=== PATIENT | male | born 1980 | race Caucasian/White ===

== ENCOUNTER → 2017-04-03 | Day surgery (SDC) | payer BC ==
[2017-04-01 12:48] LABS: BASOPHILS # (AUTO) 0.1 (0.0-0.1); BASOPHILS % 0.8 % (0.0-1.0); EOSINOPHILS # (AUTO) 0.6 (0.0-0.4); EOSINOPHILS % 7.1 % (0.0-6.0); HEMOGLOBIN 15.2 g/dL (14.0-18.0); LYMPHOCYTES # (AUTO) 2.5 (1.0-3.2); LYMPHOCYTES % 29.4 % (18.0-39.1); MEAN CORPUSCULAR HEMOGLOBIN 29.1 pg (28-32); MEAN CORPUSCULAR HGB CONC 34.5 g/dL (31-35); MEAN CORPUSCULAR VOLUME 84.1 fL (81-99); MONOCYTES # (AUTO) 0.8 (0.2-0.8); MONOCYTES % 9.8 % (4.4-11.3); NEUTROPHILS # (AUTO) 4.4 (2.1-6.9); NEUTROPHILS % 52.1 % (38.7-80.0); PLATELET COUNT 326 x10e3/uL (140-360); RED BLOOD COUNT 5.23 x10e6/uL (4.3-5.7); RED CELL DISTRIBUTION WIDTH 12.2 % (11.7-14.4)
[2017-04-01 14:05] LABS: ANION GAP 12.6 mmol/L (8-16); BLOOD UREA NITROGEN 13 mg/dL (7-26); BUN/CREATININE RATIO 14 (6-25); CALCIUM 9.7 mg/dL (8.4-10.2); CARBON DIOXIDE 29 mmol/L (22-29); CHLORIDE 106 mmol/L (98-107); CREATININE, SERUM 0.91 mg/dL (0.72-1.25); EST GLOMERULAR FILTRATION RATE > 60 ML/MIN (60-); GLUCOSE 91 mg/dL (74-118); POTASSIUM 4.6 mmol/L (3.5-5.1); SODIUM 143 mmol/L (136-145)
[~2017-04-03] MED LIST: BUPIVACAINE 0.25%/EPI 30ML SDV INJ ONE; DEXAMETHASONE SOD PHOS INJ 4 MG/ML VIAL ONE; FENTANYL CITRATE/PF 100MCG/2 ML INJ ONE; LIDOCAINE HCL 1% LOCAL INJ 20 ML VIAL ONE; LIDOCAINE HCL 2% LOCAL INJ 5 ML SDV VIAL INJ ONE; MEPERIDINE HCL INJ 50 MG/ML INJ ONE; MIDAZOLAM HCL 2 MG/2 ML VIAL ONE; OMEPRAZOLE40 MG PO; ONDANSETRON HCL INJ 2 MG/ML VIAL ONE; PROPOFOL IV EMULSION 10 MG/ML 20 ML VIAL ONE; ROCURONIUM BROMIDE 10 MG/ML 5ML VIAL ONE; SEVOFLURANE INHAL SOLN 250 ML PEN BTL ONE
--- NOTE | 2017-04-03 14:43 | Operative Report ---
DATE OF PROCEDURE: April 03, 2017 PREOPERATIVE DIAGNOSIS: Right inguinal hernia. POSTOPERATIVE DIAGNOSIS: Right inguinal hernia. OPERATION PERFORMED: Repair of right inguinal hernia with large Prolene Hernia System. MANUFACTURING PLANNER: CARRI Cornejo. ANESTHESIA: General. COMPLICATIONS: None. ESTIMATED BLOOD LOSS: Minimal. DESCRIPTION OF PROCEDURE: With the patient lying in bed in the supine position, under good general anesthesia, the abdomen was prepped with Betadine solution and draped in the usual manner. Right inguinal incision was made. It was carried down through the subcutaneous tissue down to the external oblique aponeurosis. External oblique was opened along the length of its fibers, and the external inguinal ring was opened. The cord was then mobilized and retracted. Exploration of the cord revealed the presence of a large indirect hernia sac, which was from all of the cord structures, and a high ligation was achieved with a pursestring suture of 2-0 silk and a 2-0 silk tie. The excess was resected. The preperitoneal space was then entered, and a pocket was created without any difficulty. A large Prolene Hernia System was placed in the preperitoneal space, and the underlay patch was deployed without any problems. The overlay patch was then placed over the floor and split inferolaterally to allow for passage of the cord. The mesh was then sutured to the conjoined tendon and inguinal ligament using interrupted sutures of 2-0 Vicryl. All layers were infiltrated on the way out with a solution of 1/4 percent Marcaine and 1% lidocaine mixed in equal parts. Perfect hemostasis was ascertained. External oblique aponeurosis was closed with a running suture 2-0 Vicryl. The subcutaneous tissue was approximated with 3-0 plain, and the skin was closed with clips. A dressing was applied. The sponge, lap and needle count was correct. The patient tolerated the procedure well and returned to the recovery room in stable condition. Job#: [id number]
== END | disposition home or self-care (01) ==
LOC: OR 07:06
PROVIDERS: ATTEND Surgery
DX: K40.90 Unilateral inguinal hernia, without obstruction or gangrene, not specified as recurrent (principal); K21.9 Gastro-esophageal reflux disease without esophagitis; J30.2 Other seasonal allergic rhinitis; Z01.812 Encounter for preprocedural laboratory examination
CPT/HCPCS: 36415; 49505; 80048; 85025; C1781; J1100; J2001 ×2; J2175; J2250; J2405

== ENCOUNTER 2017-08-27 16:26 | Inpatient (IN) | payer BC ==
[~2017-08-27] VITALS: Ht 177.8 cm; Wt 67.2 kg
[~2017-08-27 16:26] MED LIST changes: -BUPIVACAINE 0.25%/EPI 30ML SDV INJ ONE; -DEXAMETHASONE SOD PHOS INJ 4 MG/ML VIAL ONE; -FENTANYL CITRATE/PF 100MCG/2 ML INJ ONE; -LIDOCAINE HCL 1% LOCAL INJ 20 ML VIAL ONE; -LIDOCAINE HCL 2% LOCAL INJ 5 ML SDV VIAL INJ ONE; -MEPERIDINE HCL INJ 50 MG/ML INJ ONE; -MIDAZOLAM HCL 2 MG/2 ML VIAL ONE; -ONDANSETRON HCL INJ 2 MG/ML VIAL ONE; -PROPOFOL IV EMULSION 10 MG/ML 20 ML VIAL ONE; -ROCURONIUM BROMIDE 10 MG/ML 5ML VIAL ONE; -SEVOFLURANE INHAL SOLN 250 ML PEN BTL ONE
[2017-08-27] MEDS ORDERED: SODIUM CHLORIDE 0.9% 1000ML 1,000 ML IV STA ×2 (16:57→20:51)
[2017-08-27] MEDS ORDERED: PROMETHAZINE HCL (IM) 25 MG/ML VIAL IV STA (16:57)
[2017-08-27] MEDS ORDERED: MORPHINE SULFATE 4 MG/ML SYR IV STA (17:03)
[2017-08-27] MEDS ORDERED: DIATRIZOATE MEGL/DIATRIZOA SOD 30 ML BTL PO ONE (17:17)
[2017-08-27 17:46] LABS: BASOPHILS # (AUTO) 0.1 (0.0-0.1); BASOPHILS % 0.4 % (0.0-1.0); HEMATOCRIT 47.3 % (38.2-49.6); HEMOGLOBIN 16.5 g/dL (14.0-18.0); LYMPHOCYTES # (AUTO) 0.4 (1.0-3.2); LYMPHOCYTES % 1.9 % (18.0-39.1); MEAN CORPUSCULAR HEMOGLOBIN 29.1 pg (28-32); MEAN CORPUSCULAR HGB CONC 34.9 g/dL (31-35); MEAN CORPUSCULAR VOLUME 83.4 fL (81-99); MONOCYTES % 4.3 % (4.4-11.3); NEUTROPHILS # (AUTO) 20.8 (2.1-6.9); NEUTROPHILS % 91.4 % (38.7-80.0); PLATELET COUNT 271 x10e3/uL (140-360); RED BLOOD COUNT 5.67 x10e6/uL (4.3-5.7); RED CELL DISTRIBUTION WIDTH 12.7 % (11.7-14.4)
[2017-08-27] MEDS ORDERED: PIPER-TAZ 3.375 GM 50 ML IV ONE (18:00)
[2017-08-27 18:06] LABS: ALANINE AMINOTRANSFERASE 17 IU/L (0-55); ALBUMIN 3.9 g/dL (3.5-5.0); ALBUMIN/GLOBULIN RATIO 0.7 (0.8-2.0); ALKALINE PHOSPHATASE 91 IU/L (40-150); AMYLASE 48 U/L (25-125); BLOOD UREA NITROGEN 27 mg/dL (7-26); BUN/CREATININE RATIO 18 (6-25); CALCIUM 11.5 mg/dL (8.4-10.2); CARBON DIOXIDE 29 mmol/L (22-29); CHLORIDE 93 mmol/L (98-107); CREATINE KINASE 49 IU/L (30-200); CREATININE, SERUM 1.46 mg/dL (0.72-1.25); EST GLOMERULAR FILTRATION RATE 54 ML/MIN (60-); GLUCOSE 135 mg/dL (74-118); LIPASE 15 U/L (8-78); SODIUM 136 mmol/L (136-145)
[2017-08-27 18:29] LABS: THYROID STIMULATING HORMONE 0.957 uIU/mL (0.350-4.940)
[2017-08-27] MEDS ORDERED: MORPHINE SULFATE 2 MG/ML SYR ONE (18:33)
[2017-08-27 18:49] LABS: LYMPHOCYTES % (MANUAL) 2 % (19-48); MONOCYTES % (MANUAL) 2 % (3.4-9.0); NEUTROPHILS % (MANUAL) 96 % (40-74); PLATELET ESTIMATE ADEQUATE; PLATELET MORPHOLOGY COMMENT NORMAL; RBC MORPHOLOGY COMMENT NORMAL
[2017-08-27] MEDS ORDERED: METOCLOPRAMIDE HCL 10 MG/2ML VIAL IV ONE (19:00)
--- NOTE | 2017-08-27 20:47 | Diagnostic Imaging Report ---
EXAM: CT Abdomen and Pelvis WITH contrast INDICATION: \S\r/o appy \[id number] \S\1932 COMPARISON: None. TECHNIQUE: Abdomen and pelvis were scanned utilizing a multidetector helical scanner from the lung base to the pubic symphysis after administration of IV contrast. Coronal and sagittal reformations were obtained. Routine protocol was performed. Scan was performed when during portal venous phase. IV CONTRAST: 100 mL of Isovue-370 ORAL CONTRAST: Gastrografin RADIATION DOSE: Total DLP: 212.7 mGy*cm Estimated effective dose: (DLP x 0.015 x size factor) mSv COMPLICATIONS: None FINDINGS: LINES and TUBES: None. LOWER THORAX: Unremarkable HEPATOBILIARY: No focal hepatic lesions. No biliary ductal dilation. GALLBLADDER: No radio-opaque stones or sludge. No wall thickening. SPLEEN: No splenomegaly. PANCREAS: No focal masses or ductal dilatation. ADRENALS: No adrenal nodules KIDNEYS/URETERS: Kidneys enhance symmetrically. No hydronephrosis. Subcentimeter right renal cyst. No stones. GI TRACT: Multiple dilated loops of small and large bowel. No bowel obstruction. Diffuse dilatation of the appendix measuring up to 1.4 cm and containing multiple appendicoliths measuring up to 1 cm. Extensive fat stranding and a small amount of free fluid surrounding the appendix. Extensive inflammatory changes in the cecum. Few foci of free air adjacent to the appendix, better seen on series 2, images 69 and 70. PELVIC ORGANS/BLADDER: Unremarkable. LYMPH NODES: No lymphadenopathy. VESSELS: Unremarkable. PERITONEUM / RETROPERITONEUM: No free air or fluid. BONES: Unremarkable. SOFT TISSUES: Unremarkable. IMPRESSION: Findings consistent with perforated appendicitis with only a few air foci surrounding the appendix. Extensive inflammatory changes involving the cecum as well. Reactive ileus. These findings were communicated to Dr. Sarabia on 08/27/2017 at 8:40 PM. Signed by: Dr. Peg Hastings M.D. on 08/27/2017 8:44 PM
[2017-08-27] MEDS ORDERED: HYDROMORPHONE 1MG/1ML INJ IV PRN (21:00)
[2017-08-27] MEDS ORDERED: MORPHINE SULFATE 2 MG/ML SYR IV PRN (21:00)
[2017-08-27] MEDS ORDERED: ONDANSETRON HCL 4 MG ORAL DISINTEGRATING TAB PO PRN (21:00)
[2017-08-27] MEDS ORDERED: IOPAMIDOL 370 MG/ML 200 ML INFUS..BTL INJ ONE (21:22)
[2017-08-27] MEDS ORDERED: SODIUM CHLORIDE 0.9% 50ML 50 ML ONE (21:22)
[2017-08-27] MEDS: SODIUM CHLORIDE 0.9% 1000ML 1,000 ML IV SCH (21:45)
[2017-08-27] MEDS: HYDROMORPHONE 2MG/ML INJ IV PRN (21:50)
[2017-08-27] MEDS ORDERED: PIPER-TAZ 3.375 GM / NS 50ML IV SCH ×2 (22:00)
--- OUTSIDE RECORDS SUMMARY | 2017-08-27 22:09 | XMS REPORT ---
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 Allergies, Adverse Reactions, Alerts This patient has no known allergies or adverse reactions. Medications This patient has no known medications. 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 TECHNIQUE: Abdomen and pelvis were scanned utilizing a multidetector helical scanner from the lung base to the pubic symphysis after administration of IV contrast. Coronal and sagittal reformations were obtained. Routine protocol was performed. Scan was performed when during portal venous phase. IV CONTRAST: 100 mL of Isovue-370 ORAL CONTRAST: Gastrografin RADIATION DOSE: Total DLP: 212.7 mGy*cm Estimated effective dose: (DLP x 0.015 x size factor) mSv COMPLICATIONS: None FINDINGS: LINES and TUBES: None. LOWER THORAX: Unremarkable HEPATOBILIARY: No focal hepatic lesions. No biliary ductal dilation. GALLBLADDER: No radio-opaque stones or sludge. No wall thickening. SPLEEN: No splenomegaly. PANCREAS: No focal masses or ductal dilatation. ADRENALS: No adrenal nodules KIDNEYS/URETERS : Kidneys enhance symmetrically. No hydronephrosis. Subcentimeter right renal cyst. No stones. GI TRACT: Multiple dilated loops of small and large bowel. No bowel obstruction. Diffuse dilatation of the appendix measuring up to 1.4 cm and containing multiple appendicoliths measuring up to 1 cm. Extensive fat stranding and a small amount of free fluid surrounding the appendix. Extensive inflammatory changes in the cecum. Few foci of free air adjacent to the appendix, better seen on series 2, images 69 and 70. PELVIC ORGANS/BLADDER: Unremarkable. LYMPH NODES: No lymphadenopathy. VESSELS: Unremarkable. PERITONEUM / RETROPERITONEUM: No free air or fluid. BONES: Unremarkable. SOFT TISSUES: Unremarkable. IMPRESSION: Findings consistent with perforated appendicitis with only a few air foci surrounding the appendix. Extensive inflammatory changes involving the cecum as well. Reactive ileus. These findings were communicated to Dr. Adkins on 08/27/2017 at 8:40 PM. Signed by: Dr. Delphine Headley M.D. on 08/27/2017 8:44 PM Dictated By: DELPHINE HEADLEY MD 43 Transcribed By: PIO on 08/27/172043 COPY TO: ERIN HANNA NP
[2017-08-28] MEDS ORDERED: METRONIDAZOLE 500MG/NS 100ML IV SCH
[2017-08-28] MEDS: PIPER-TAZ 3.375 GM 100 ML IV SCH ×4 (00:32→19:08)
[2017-08-28] MEDS: METOCLOPRAMIDE HCL 10 MG/2ML VIAL IV SCH ×2 (00:41→05:54)
[2017-08-28] MEDS: METRONIDAZOLE 500MG/NS 100ML 100 ML IV SCH ×5 (01:47→23:32)
[2017-08-28] MEDS: HYDROMORPHONE 2MG/ML INJ IV PRN ×2 (01:50→08:07)
[2017-08-28] MEDS: SODIUM CHLORIDE 0.9% 1000ML 1,000 ML IV SCH ×5 (05:12→23:40)
[2017-08-28 05:22] LABS: BASOPHILS # (AUTO) 0.1 (0.0-0.1); BASOPHILS % 0.5 % (0.0-1.0); EOSINOPHILS % 0.1 % (0.0-6.0); HEMATOCRIT 43.4 % (38.2-49.6); LYMPHOCYTES # (AUTO) 0.3 (1.0-3.2); LYMPHOCYTES % 2.3 % (18.0-39.1); MEAN CORPUSCULAR HGB CONC 34.6 g/dL (31-35); MEAN CORPUSCULAR VOLUME 83.9 fL (81-99); MONOCYTES % 6.8 % (4.4-11.3); NEUTROPHILS # (AUTO) 13.5 (2.1-6.9); NEUTROPHILS % 89.6 % (38.7-80.0); PLATELET COUNT 237 x10e3/uL (140-360); RED BLOOD COUNT 5.17 x10e6/uL (4.3-5.7); RED CELL DISTRIBUTION WIDTH 12.7 % (11.7-14.4)
[2017-08-28 05:25] LABS: CLARITY,URINE CLEAR (CLEAR); COLOR,URINE YELLOW (YELLOW)
[2017-08-28 05:26] LABS: BILIRUBIN,URINE NEGATIVE (NEGATIVE); KETONES,URINE NEGATIVE (NEGATIVE); LEUKOCYTE ESTERASE ,URINE NEGATIVE (NEGATIVE); NITRITE,URINE NEGATIVE (NEGATIVE); PROTEIN,URINE DIPSTICK 2+ (NEGATIVE); URINE UROBILINOGEN 0.2 mg/dL (0.2 - 1)
[2017-08-28 05:41] LABS: ANION GAP 16.2 mmol/L (8-16); BLOOD UREA NITROGEN 24 mg/dL (7-26); BUN/CREATININE RATIO 21 (6-25); CALCIUM 10.1 mg/dL (8.4-10.2); CARBON DIOXIDE 25 mmol/L (22-29); CHLORIDE 98 mmol/L (98-107); CREATININE, SERUM 1.13 mg/dL (0.72-1.25); EST GLOMERULAR FILTRATION RATE > 60 ML/MIN (60-); GLUCOSE 147 mg/dL (74-118); POTASSIUM 4.2 mmol/L (3.5-5.1); SODIUM 135 mmol/L (136-145)
[2017-08-28 05:48] LABS: WBC,URINE (MAN) 0-5 /HPF (0-5)
[2017-08-28 05:49] LABS: BACTERIA,URINE FEW /HPF; EPITHELIAL CELLS,URINE RARE /LPF; RBC,URINE 0-5 /HPF (0-5); URIC ACID CRYSTALS,URINE MODERATE (FEW)
[2017-08-28 08:33] LABS: BAND NEUTROPHILS % (MANUAL) 5 %; LYMPHOCYTES % (MANUAL) 1 % (19-48); MONOCYTES % (MANUAL) 7 % (3.4-9.0); NEUTROPHILS % (MANUAL) 87 % (40-74)
[2017-08-28 08:34] LABS: ANISOCYTOSIS SLIGHT; PLATELET ESTIMATE ADEQUATE; RBC MORPHOLOGY COMMENT NORMAL
[2017-08-28 08:35] LABS: PLATELET MORPHOLOGY COMMENT NORMAL
[2017-08-28] MEDS ORDERED: MORPHINE SULFATE INJ 10 MG/ML ONE (11:42)
[2017-08-28] MEDS ORDERED: FENTANYL CITRATE/PF 100MCG/2 ML INJ ONE (11:42)
[2017-08-28] MEDS ORDERED: MIDAZOLAM HCL 2 MG/2 ML VIAL ONE (11:42)
[2017-08-28] MEDS ORDERED: PROMETHAZINE HCL (IM) 25 MG/ML VIAL IV PRN (12:15)
[2017-08-28] MEDS ORDERED: ACETAMINOPHEN 1000 MG/100 ML IV PRN (12:15)
[2017-08-28] MEDS: SODIUM CHLORIDE 0.9% 250ML IRRIG IR SCH ×3 (12:15→20:15)
--- NOTE | 2017-08-28 13:28 | Operative Report ---
DATE OF PROCEDURE: August 28, 2017 PREOPERATIVE DIAGNOSIS: Perforated appendicitis with peritonitis. POSTOPERATIVE DIAGNOSIS: Perforated appendicitis with peritonitis with intra-abdominal abscesses. OPERATION PERFORMED: Exploratory laparotomy, appendectomy, drainage of multiple intraperitoneal abscesses, and copious peritoneal lavage. ANESTHESIA: General. COMPLICATIONS: None. ESTIMATED BLOOD LOSS: Minimal. DESCRIPTION OF PROCEDURE: With the patient lying in bed in the supine position, under good general endotracheal anesthesia, the abdomen was prepped with Betadine solution and draped in the usual manner. A lower midline incision was made. It was carried down through the subcutaneous tissue down to the midline fascia. The midline fascia was opened, and the abdomen was entered. Upon entering the abdominal cavity, immediately some fluid was encountered which was aspirated. Exploration of the right lower quadrant revealed a gangrenous, perforated appendix with several free fecaliths in the abdominal cavity. The fecaliths were all removed. The appendix was actually detached from the base of the appendix, and the mesentery of the appendix was then ligated with a 2-0 Vicryl tie, and the appendix was sent for pathological examination. The cultures were taken. After this was done, the right colon was then mobilized off the retroperitoneum and the right gutter and brought up into the wound. The base of the appendix was then mobilized and cleaned off from the cecum. The base of the cecum was then divided with an application of the LEAH 75 stapler. This gave us a satisfactory closure. The abdomen was then copiously irrigated with many liters of saline solution. All of the effluent was aspirated. The bowel was run several times, and all of the interloop abscesses were broken down as well as all of the other right lower quadrant abscesses. All of this fluid was aspirated. The fluid in the small bowel was then mobilized and pushed into the colon to decrease the tension in the mid abdomen. Once this was done, the abdomen was then again copiously irrigated, and all of the excess fluid was aspirated. A #10 flat Teo-Lizarraga drain was then placed in the right lower quadrant and placed down into the pelvis and sutured to the skin with 2-0 silk. The abdomen was then closed in layers. The peritoneum was closed with a running suture of #1 Vicryl. The midline fascia was closed with a running suture of #1 Vicryl. All layers were copiously irrigated. A 1/4-inch Ghazala drain was left in the subcutaneous tissue, and the skin was closed with clips. A dressing was applied. The sponge, lap and needle count was correct. Patient tolerated the procedure well and returned to the recovery room in stable condition. Job#: [id number]
[2017-08-28 14:05] VITALS: BP 142/85
[2017-08-28 14:27] VITALS: BP 142/85
[2017-08-28] MEDS ORDERED: SODIUM CHLORIDE 0.9% 1000ML 1,000 ML ONE (17:43)
[2017-08-28] MEDS: PANTOPRAZOLE 40 MG 10ML VIAL IV SCH (17:45)
[2017-08-28 17:57] VITALS: BP 141/77
[2017-08-28] MEDS ORDERED: GLYCOPYRROLATE INJ 1MG/ 5 ML SYR ONE (18:48)
[2017-08-28] MEDS ORDERED: ROCURONIUM BROMIDE 10 MG/ML 5ML VIAL ONE (18:48)
[2017-08-28] MEDS ORDERED: LIDOCAINE HCL 2% LOCAL INJ 5 ML SDV VIAL INJ ONE (18:48)
[2017-08-28] MEDS ORDERED: NEOSTIGMINE 5 MG/5ML SYR ONE (18:48)
[2017-08-28] MEDS ORDERED: SEVOFLURANE INHAL SOLN 250 ML PEN BTL ONE (18:48)
[2017-08-28] MEDS ORDERED: ONDANSETRON HCL INJ 2 MG/ML VIAL ONE (18:48)
[2017-08-28] MEDS ORDERED: ACETAMINOPHEN 1000 MG/100 ML IV ONE (18:48)
[2017-08-28] MEDS ORDERED: DEXAMETHASONE SOD PHOS INJ 4 MG/ML VIAL ONE (18:48)
[2017-08-28] MEDS ORDERED: PROPOFOL IV EMULSION 10 MG/ML 20 ML VIAL ONE (18:48)
[2017-08-28 20:30] VITALS: BP 134/81
[2017-08-29] VITALS (7 sets, daily range): BP systolic 104–134; BP diastolic 57–88
[2017-08-29] MEDS: SODIUM CHLORIDE 0.9% 250ML IRRIG IR SCH ×3 (00:15→08:15)
[2017-08-29] MEDS: HYDROMORPHONE 2MG/ML INJ IV PRN ×6 (00:22→20:00)
[2017-08-29] MEDS ORDERED: PROMETHAZINE 12.5MG/ NACL 0.9% 12.5 MG/50 ML BAG IV PRN (03:30)
[2017-08-29] MEDS: METRONIDAZOLE 500MG/NS 100ML 100 ML IV SCH ×3 (04:53→18:07)
[2017-08-29] MEDS: SODIUM CHLORIDE 0.9% 1000ML 1,000 ML IV SCH ×3 (05:01→18:08)
[2017-08-29] MEDS: PIPER-TAZ 3.375 GM 100 ML IV SCH ×4 (06:00→18:07)
[2017-08-29 07:34] LABS: BASOPHILS % 0.5 % (0.0-1.0); EOSINOPHILS % 0.1 % (0.0-6.0); HEMATOCRIT 40.5 % (38.2-49.6); HEMOGLOBIN 13.8 g/dL (14.0-18.0); LYMPHOCYTES # (AUTO) 0.3 (1.0-3.2); LYMPHOCYTES % 4.1 % (18.0-39.1); MEAN CORPUSCULAR HEMOGLOBIN 29.3 pg (28-32); MEAN CORPUSCULAR HGB CONC 34.1 g/dL (31-35); MONOCYTES # (AUTO) 0.9 (0.2-0.8); MONOCYTES % 10.9 % (4.4-11.3); NEUTROPHILS # (AUTO) 6.7 (2.1-6.9); NEUTROPHILS % 83.5 % (38.7-80.0); PLATELET COUNT 264 x10e3/uL (140-360); RED BLOOD COUNT 4.71 x10e6/uL (4.3-5.7); RED CELL DISTRIBUTION WIDTH 13.2 % (11.7-14.4)
[2017-08-29 07:58] LABS: ANION GAP 12.9 mmol/L (8-16); BLOOD UREA NITROGEN 22 mg/dL (7-26); BUN/CREATININE RATIO 23 (6-25); CALCIUM 9.4 mg/dL (8.4-10.2); CARBON DIOXIDE 28 mmol/L (22-29); CHLORIDE 101 mmol/L (98-107); CREATININE, SERUM 0.94 mg/dL (0.72-1.25); EST GLOMERULAR FILTRATION RATE > 60 ML/MIN (60-); GLUCOSE 128 mg/dL (74-118); POTASSIUM 3.9 mmol/L (3.5-5.1); SODIUM 138 mmol/L (136-145)
[2017-08-29 11:01] LABS: BAND NEUTROPHILS % (MANUAL) 2 %; LYMPHOCYTES % (MANUAL) 3 % (19-48); MONOCYTES % (MANUAL) 8 % (3.4-9.0); NEUTROPHILS % (MANUAL) 87 % (40-74); PLATELET ESTIMATE ADEQUATE; PLATELET MORPHOLOGY COMMENT NORMAL; RBC MORPHOLOGY COMMENT NORMAL
[2017-08-29] MEDS: PANTOPRAZOLE 40 MG 10ML VIAL IV SCH (12:15)
[2017-08-29] MEDS ORDERED: SODIUM CHLORIDE 0.9% 1000ML 1,000 ML ONE (13:55)
[2017-08-30] VITALS (9 sets, daily range): BP systolic 133–177; BP diastolic 81–97
[2017-08-30] MEDS: METRONIDAZOLE 500MG/NS 100ML 100 ML IV SCH ×4 (00:25→19:41)
[2017-08-30] MEDS: PIPER-TAZ 3.375 GM 100 ML IV SCH ×4 (00:25→18:08)
[2017-08-30] MEDS: HYDROMORPHONE 2MG/ML INJ IV PRN ×3 (00:35→08:40)
[2017-08-30] MEDS: SODIUM CHLORIDE 0.9% 1000ML 1,000 ML IV SCH ×3 (05:32→20:35)
[2017-08-30 07:10] LABS: BASOPHILS # (AUTO) 0.1 (0.0-0.1); BASOPHILS % 0.5 % (0.0-1.0); EOSINOPHILS % 0.1 % (0.0-6.0); LYMPHOCYTES # (AUTO) 0.7 (1.0-3.2); LYMPHOCYTES % 5.2 % (18.0-39.1); MEAN CORPUSCULAR HEMOGLOBIN 29.1 pg (28-32); MEAN CORPUSCULAR HGB CONC 33.3 g/dL (31-35); MEAN CORPUSCULAR VOLUME 87.2 fL (81-99); MONOCYTES # (AUTO) 1.3 (0.2-0.8); MONOCYTES % 10.4 % (4.4-11.3); NEUTROPHILS # (AUTO) 10.3 (2.1-6.9); NEUTROPHILS % 82.1 % (38.7-80.0); PLATELET COUNT 264 x10e3/uL (140-360); RED BLOOD COUNT 4.47 x10e6/uL (4.3-5.7); RED CELL DISTRIBUTION WIDTH 13.6 % (11.7-14.4)
[2017-08-30 07:32] LABS: ANION GAP 14.3 mmol/L (8-16); BLOOD UREA NITROGEN 26 mg/dL (7-26); BUN/CREATININE RATIO 31 (6-25); CALCIUM 9.6 mg/dL (8.4-10.2); CARBON DIOXIDE 27 mmol/L (22-29); CHLORIDE 106 mmol/L (98-107); CREATININE, SERUM 0.84 mg/dL (0.72-1.25); EST GLOMERULAR FILTRATION RATE > 60 ML/MIN (60-); GLUCOSE 137 mg/dL (74-118); POTASSIUM 4.3 mmol/L (3.5-5.1); SODIUM 143 mmol/L (136-145)
[2017-08-30] MEDS: HYDROCODONE/APAP 7.5MG-325MG 1 EA TAB PO PRN (12:30)
[2017-08-30] MEDS: PANTOPRAZOLE 40 MG 10ML VIAL IV SCH (12:39)
[2017-08-30] MEDS: ZOLPIDEM TARTRATE 10 MG TAB PO PRN (21:13)
[2017-08-31] VITALS (8 sets, daily range): BP systolic 118–129; BP diastolic 64–79
[2017-08-31] MEDS: METRONIDAZOLE 500MG/NS 100ML 100 ML IV SCH ×4 (01:02→17:19)
[2017-08-31] MEDS: PIPER-TAZ 3.375 GM 100 ML IV SCH ×4 (05:25→18:16)
[2017-08-31 07:02] LABS: BASOPHILS # (AUTO) 0.1 (0.0-0.1); BASOPHILS % 0.6 % (0.0-1.0); EOSINOPHILS # (AUTO) 0.2 (0.0-0.4); EOSINOPHILS % 2.5 % (0.0-6.0); HEMATOCRIT 32.4 % (38.2-49.6); LYMPHOCYTES # (AUTO) 1.4 (1.0-3.2); LYMPHOCYTES % 15.1 % (18.0-39.1); MEAN CORPUSCULAR HEMOGLOBIN 29.3 pg (28-32); MEAN CORPUSCULAR VOLUME 86.4 fL (81-99); MONOCYTES # (AUTO) 1.2 (0.2-0.8); MONOCYTES % 12.5 % (4.4-11.3); NEUTROPHILS % 63.5 % (38.7-80.0); PLATELET COUNT 216 x10e3/uL (140-360); RED BLOOD COUNT 3.75 x10e6/uL (4.3-5.7); RED CELL DISTRIBUTION WIDTH 13.4 % (11.7-14.4)
[2017-08-31 07:31] LABS: ANION GAP 10.3 mmol/L (8-16); BLOOD UREA NITROGEN 16 mg/dL (7-26); BUN/CREATININE RATIO 21 (6-25); CALCIUM 8.2 mg/dL (8.4-10.2); CARBON DIOXIDE 26 mmol/L (22-29); CHLORIDE 106 mmol/L (98-107); CREATININE, SERUM 0.77 mg/dL (0.72-1.25); EST GLOMERULAR FILTRATION RATE > 60 ML/MIN (60-); GLUCOSE 107 mg/dL (74-118); POTASSIUM 3.3 mmol/L (3.5-5.1); SODIUM 139 mmol/L (136-145)
[2017-08-31] MEDS: SODIUM CHLORIDE 0.9% 1000ML 1,000 ML IV SCH (09:20)
[2017-08-31] MEDS: HYDROCODONE/APAP 7.5MG-325MG 1 EA TAB PO PRN (11:16)
[2017-08-31] MEDS: PANTOPRAZOLE 40 MG 10ML VIAL IV SCH (11:59)
[2017-08-31] MEDS: ZOLPIDEM TARTRATE 10 MG TAB PO PRN (20:57)
[2017-09-01] MEDS: SODIUM CHLORIDE 0.9% 1000ML 1,000 ML IV SCH ×3 (01:13→21:53)
[2017-09-01] MEDS: PIPER-TAZ 3.375 GM 100 ML IV SCH ×5 (01:13→23:26)
[2017-09-01] MEDS: METRONIDAZOLE 500MG/NS 100ML 100 ML IV SCH ×4 (02:17→17:31)
[2017-09-01] MEDS: HYDROCODONE/APAP 7.5MG-325MG 1 EA TAB PO PRN (02:29)
[2017-09-01 08:10] VITALS: BP 135/84
[2017-09-01 09:53] VITALS: BP 135/84
[2017-09-01] MEDS: PANTOPRAZOLE 40 MG 10ML VIAL IV SCH (12:30)
[2017-09-01 13:26] VITALS: BP 132/72
[2017-09-01 16:25] VITALS: BP 142/90
[2017-09-01 20:00] VITALS: BP 135/87
[2017-09-02] MEDS: METRONIDAZOLE 500MG/NS 100ML 100 ML IV SCH ×4 (00:15→17:55)
[2017-09-02] MEDS: PIPER-TAZ 3.375 GM 100 ML IV SCH ×2 (05:31→15:10)
[2017-09-02 08:39] VITALS: BP 136/90
[2017-09-02 11:05] VITALS: BP 136/90
[2017-09-02 14:02] VITALS: BP 144/82
[2017-09-02] MEDS: PANTOPRAZOLE 40 MG 10ML VIAL IV SCH (14:06)
[2017-09-02 18:06] VITALS: BP 139/80
[2017-09-02] MEDS ORDERED: LEVAQUIN500 MG PO (19:22)
[2017-09-02 20:00] VITALS: BP 137/79
== END 2017-09-02 20:20 | disposition home or self-care (01) | DRG 340 ==
LOC: ER 16:26 → ERHOLD 22:06 → UNDOADMIN 22:06 → OR 08-28 09:58 → MED/SURG 08-28 12:42
PROVIDERS: ADMIT Surgery; ATTEND Surgery
PROC: 0W9G00Z Drainage of Peritoneal Cavity with Drainage Device, Open Approach (ICD-10-PCS; 2017-08-28)
PROC: 0DTJ0ZZ Resection of Appendix, Open Approach (ICD-10-PCS; principal; 2017-08-28 14:00)
DX: K35.2 Acute appendicitis with generalized peritonitis (principal)
CPT/HCPCS: 36415; 74177; 80048; 80053; 81001; 82150; 82550; 82553; 83690; 84443; 84484; 85025; 87071; 87075; 87186; 87205; 88304; 93005; 96374; 99284; J1100; J2001; J2250; J2270; J2405; J2543; J2550; J2765; J7030; Q9967

== ENCOUNTER → 2018-05-10 | Outpatient (CLI) | payer BC ==
[~2018-05-10] MED LIST changes: +LEVAQUIN500 MG PO
--- NOTE | 2018-05-10 11:13 | Diagnostic Imaging Report ---
ELBOW LEFT COMPLETE - 3 views HISTORY: Pain. Left elbow epicondylitis. Left elbow. Goes numb for time to time. COMPARISON: None available. FINDINGS: Bones: No acute displaced fracture. Osseous alignment is within normal limits. Joints: The joint spaces are well-maintained. Soft tissues: The soft tissues appear unremarkable. IMPRESSION: Normal left elbow. Signed by: Dr. Yfn Melendrez M.D. on 05/10/2018 11:10 AM
== END ==
LOC: RAD 10:29
PROVIDERS: ATTEND Family Medicine
DX: M77.12 Lateral epicondylitis, left elbow (principal)

== ENCOUNTER 2021-09-08 03:21 | Inpatient (IN) | payer BC ==
[~2021-09-08] VITALS: Ht 177.8 cm; Wt 72.6 kg
[2021-09-08] MEDS ORDERED: ONDANSETRON HCL INJ 2MG/ML 2ML 2 MG/ML VIAL IV STA (03:31)
[2021-09-08] MEDS ORDERED: SODIUM CHLORIDE 0.9% 1000ML 1,000 ML IV ONE ×2 (03:45→06:15)
[2021-09-08] MEDS ORDERED: Morphine 4mg Syringe 4 MG/ML INJ IV ONE (03:45)
[2021-09-08 03:47] LABS: BASOPHILS % 0.5 % (0.0-1.0); EOSINOPHILS # (AUTO) 0.2 (0.0-0.4); EOSINOPHILS % 2.8 % (0.0-6.0); HEMATOCRIT 43.5 % (38.2-49.6); HEMOGLOBIN 14.7 g/dL (14.0-18.0); LYMPHOCYTES # (AUTO) 2.1 (1.0-3.2); MEAN CORPUSCULAR HEMOGLOBIN 29.3 pg (28-32); MEAN CORPUSCULAR HGB CONC 33.8 g/dL (31-35); MEAN CORPUSCULAR VOLUME 86.7 fL (81-99); MONOCYTES # (AUTO) 0.7 (0.2-0.8); MONOCYTES % 8.1 % (4.4-11.3); NEUTROPHILS # (AUTO) 5.2 (2.1-6.9); NEUTROPHILS % 63.4 % (38.7-80.0); PLATELET COUNT 297 x10e3/uL (140-360); RED BLOOD COUNT 5.02 x10e6/uL (4.3-5.7); RED CELL DISTRIBUTION WIDTH 12.9 % (11.7-14.4)
[2021-09-08] MEDS ORDERED: Morphine 4mg Syringe 4 MG/ML INJ ONE (03:47)
[2021-09-08] MEDS ORDERED: ONDANSETRON HCL INJ 2MG/ML 2ML 2 MG/ML VIAL ONE (03:47)
[2021-09-08] MEDS ORDERED: LIDOCAINE VISC 2% SOLN 15 ML UDC PO ONE (04:00)
[2021-09-08] MEDS ORDERED: BELLADONNA ALK/PHENOBARBITAL 5 ML UDC ONE (04:00)
[2021-09-08] MEDS ORDERED: BELLADONNA ALK/PHENOBARBITAL 5 ML UDC PO ONE (04:00)
[2021-09-08] MEDS ORDERED: LIDOCAINE VISC 2% SOLN 15 ML UDC ONE (04:00)
[2021-09-08] MEDS ORDERED: MAGNESIUM/ALUMINUM/SIMETHICONE 30 ML UDC PO ONE (04:00)
[2021-09-08 05:14] LABS: ALANINE AMINOTRANSFERASE 52 IU/L (0-55); ALBUMIN 4.3 g/dL (3.5-5.0); ALBUMIN/GLOBULIN RATIO 1.6 (0.8-2.0); ALKALINE PHOSPHATASE 90 IU/L (40-150); ANION GAP 13.6 mmol/L (8-16); BLOOD UREA NITROGEN 14 mg/dL (7-26); BUN/CREATININE RATIO 14 (6-25); CARBON DIOXIDE 26 mmol/L (22-29); CHLORIDE 107 mmol/L (98-107); CREATINE KINASE 182 IU/L (30-200); CREATININE, SERUM 1.02 mg/dL (0.72-1.25); EST GLOMERULAR FILTRATION RATE 80 ML/MIN (60-); GLUCOSE 137 mg/dL (74-118); POTASSIUM 3.6 mmol/L (3.5-5.1); SODIUM 143 mmol/L (136-145)
[2021-09-08 05:29] LABS: CLARITY,URINE CLOUDY (CLEAR); COLOR,URINE YELLOW (YELLOW); KETONES,URINE NEGATIVE (NEGATIVE); LEUKOCYTE ESTERASE ,URINE NEGATIVE (NEGATIVE); NITRITE,URINE NEGATIVE (NEGATIVE); PROTEIN,URINE DIPSTICK NEGATIVE (NEGATIVE); URINE UROBILINOGEN 1 mg/dL (0.2 - 1)
[2021-09-08 05:36] LABS: AMYLASE 71 U/L (25-125)
[2021-09-08 05:37] LABS: LIPASE > 1200 U/L (8-78)
[2021-09-08 05:38] LABS: AMORPHOUS SEDIMENT,URINE MANY (FEW); BACTERIA,URINE MANY /HPF; EPITHELIAL CELLS,URINE FEW /LPF; RBC,URINE 0-5 /HPF (0-5); WBC,URINE (MAN) 0-5 /HPF (0-5)
[2021-09-08] MEDS ORDERED: SODIUM CHLORIDE 0.9% 1000ML 1,000 ML IV STA (06:05)
[2021-09-08] MEDS ORDERED: SODIUM CHLORIDE 0.9% 1000ML 1,000 ML ONE (06:14)
[2021-09-08] MEDS ORDERED: PANTOPRAZOLE SO40 MG PO (07:16)
[2021-09-08] MEDS: SODIUM CHLORIDE 0.9% 1000ML 1,000 ML IV SCH ×3 (07:34→23:45)
[2021-09-08 08:54] VITALS: BP 136/102
[2021-09-08 09:30] VITALS: BP 136/102
[2021-09-08 11:54] VITALS: BP 151/98
[2021-09-08] MEDS ORDERED: IOPAMIDOL 370 MG/ML 100 ML INFUS..BTL INJ ONE (12:13)
[2021-09-08] MEDS: Morphine 4mg Syringe 4 MG/ML INJ IV PRN ×2 (13:05→21:37)
[2021-09-08] MEDS: ONDANSETRON HCL INJ 2MG/ML 2ML 2 MG/ML VIAL IV PRN ×2 (13:06→21:37)
[2021-09-08 16:10] VITALS: BP 149/86
[2021-09-08 20:00] VITALS: BP 133/96
[2021-09-08 21:00] VITALS: BP 133/96
[2021-09-09] VITALS (9 sets, daily range): BP systolic 121–136; BP diastolic 89–95
[2021-09-09 05:32] LABS: ANION GAP 10.6 mmol/L (8-16); BASOPHILS # (AUTO) 0.1 (0.0-0.1); BASOPHILS % 0.9 % (0.0-1.0); CALCIUM 8.2 mg/dL (8.4-10.2); CREATININE, SERUM 1.01 mg/dL (0.72-1.25); EOSINOPHILS # (AUTO) 0.3 (0.0-0.4); EOSINOPHILS % 5.7 % (0.0-6.0); HEMOGLOBIN 13.9 g/dL (14.0-18.0); LYMPHOCYTES # (AUTO) 1.4 (1.0-3.2); LYMPHOCYTES % 26.4 % (18.0-39.1); MEAN CORPUSCULAR HEMOGLOBIN 29.4 pg (28-32); MEAN CORPUSCULAR HGB CONC 33.1 g/dL (31-35); MEAN CORPUSCULAR VOLUME 88.8 fL (81-99); MONOCYTES # (AUTO) 0.5 (0.2-0.8); MONOCYTES % 9.4 % (4.4-11.3); NEUTROPHILS # (AUTO) 3.1 (2.1-6.9); NEUTROPHILS % 57.4 % (38.7-80.0); PLATELET COUNT 249 x10e3/uL (140-360); POTASSIUM 4.6 mmol/L (3.5-5.1); RED BLOOD COUNT 4.73 x10e6/uL (4.3-5.7); RED CELL DISTRIBUTION WIDTH 12.8 % (11.7-14.4)
[2021-09-09] MEDS: SODIUM CHLORIDE 0.9% 1000ML 1,000 ML IV SCH ×4 (05:40→20:30)
[2021-09-10] VITALS: BP 133/94
[2021-09-10 04:31] VITALS: BP 133/95
[2021-09-10] MEDS: SODIUM CHLORIDE 0.9% 1000ML 1,000 ML IV SCH (05:00)
[2021-09-10 08:23] VITALS: BP 125/97
[2021-09-10 08:27] VITALS: BP 125/97
[2021-09-10 11:58] VITALS: BP 130/91
== END 2021-09-10 12:40 | disposition home or self-care (01) | DRG 440 ==
LOC: ER 03:24 → ERHOLD 07:02 → MED/SURG 08:50
PROVIDERS: ADMIT Family Medicine; ATTEND Family Medicine
DX: K85.90 Acute pancreatitis without necrosis or infection, unspecified (principal); E86.0 Dehydration; K76.0 Fatty (change of) liver, not elsewhere classified; K21.00 Gastro-esophageal reflux disease with esophagitis, without bleeding; Z88.8 Allergy status to other drugs, medicaments and biological substances; Z20.822 Contact with and (suspected) exposure to COVID-19; N28.1 Cyst of kidney, acquired
CPT/HCPCS: 36415; 74177; 80048; 80053; 80061; 81001; 82150; 82550; 82553; 83690; 84484; 85025; 93005; 99284; J2270; J2405; J7030; Q9967; U0002